=== PATIENT | male | born 1950 | race Caucasian/White ===

== ENCOUNTER 2017-08-02 05:46 | Emergency (ER) | payer MEDICARE, MEDICAID ==
--- NOTE | 2017-08-02 05:53 | Emergency Department Record ---
History of Present Illness - General Chief complaint: Swelling of legs Stated complaint: SWELLING IN LEGS Time Seen by Provider: 08/02/17 05:48 Source: EMS Mode of Arrival: EMS Limitations: Other - History of Present Illness Initial comments: 66 yo male presents to ED for evaluation of lower extremity edema for the past several days. Patient has history of CHF previously, and his [facility] home was concerned about the swelling to the feet bilaterally. Patient is non-verbal on examination, further history is not currently available. MD Complaint: Other (edema) -: Days(s) Location: Bilateral, Foot Consistency: Constant - Related Data Home Medications Medication Instructions Recorded Confirmed Last Taken Clonazepam [Klonopin] 1 - 2 tab PO BID PRN 08/02/17 08/02/17 Unknown Clozapine [Clozapine Odt] 12.5 mg PO BID 08/02/17 08/02/17 Unknown Hydrochlorothiazide [Hctz 12.5MG] 25 mg PO ASDIR PRN 08/02/17 08/02/17 Unknown Allergies Allergy/AdvReac Type Severity Reaction Status Date / Time No Known Drug Allergies Allergy Verified 08/23/16 13:53 Review of Systems ROS unobtainable: Other (patient non-verbal) Past Medical History - SOCIAL HISTORY Smoking Status: Never smoker Drug Use: None - RESPIRATORY Hx Respiratory Disorders: No - CARDIOVASCULAR Hx Cardio Disorders: No - NEURO Hx Neuro Disorders: Yes Hx Seizures: Yes Comment:: TBI - GI Hx GI Disorders: No - Hx Genitourinary Disorders: No - ENDOCRINE Hx Endocrine Disorders: No - MUSCULOSKELETAL Hx Musculoskeletal Disorders: No - PSYCH Hx Psych Problems: Yes Hx Behavior Problems: Yes (psychotic disorder NOS) Comment:: MR able to answer "yes and no" questions - HEMATOLOGY/ONCOLOGY Hx Hematology/Oncology Disorders: No Comment:: encephalopathy Family Medical History Family Hx Comment (NOT TO BE USED IN PLACE OF ITEMS BELOW): unknown Physical Exam - General General Appearance: Alert, Cooperative, No acute distress Limitations: Other (patient non-verbal) - Head Head exam: Atraumatic, Normocephalic, Normal inspection Head exam detail: negative: Abrasion, Contusion, Hawthorne's sign, General tenderness, Hematoma, Laceration - Eye Eye exam: Normal appearance. negative: Conjunctival injection, Periorbital swelling, Periorbital tenderness, Scleral icterus - ENT Nasal Exam: negative: Active bleeding, Discharge Mouth exam: negative: Drooling, Laceration, Muffled voice, Tongue elevation Teeth exam: Dental caries - Neck Neck exam: negative: Meningismus, Tenderness - Respiratory Respiratory exam: Normal lung sounds bilaterally. negative: Rales, Respiratory distress, Rhonchi, Stridor - Cardiovascular Cardiovascular Exam: Regular rate, Normal rhythm, Normal heart sounds - GI/Abdominal GI/Abdominal exam: Soft. negative: Rebound, Rigid, Tenderness - Rectal Rectal exam: Deferred - exam: Deferred - Extremities Extremities exam: Pedal edema. negative: Calf tenderness, Tenderness - Back Back exam: Denies: CVA tenderness (R), CVA tenderness (L) - Neurological Neurological exam: Alert. negative: Motor sensory deficit - Psychiatric Psychiatric exam: Normal affect, Normal mood - Skin Skin exam: Normal color. negative: Abrasion Type of lesion: negative: abrasion Course - Reevaluation(s) Reevaluation #1: 08/02/17 06:38 Labs reviewed and are grossly unremarkable for an acute process. CXR: No significant pulmonary edema is noted. Given the bilateral nature of the patient's symptoms and lack of patricia-pain/ swelling, symptoms appear c/w pedal edema. Doppler dose not appear to be indicated based on the patient's presentation. Patient appears stable for discharge at this time. Medical Decision Making - Lab Data Result diagrams: 08/02/17 06:03 08/02/17 06:03 Disposition Disposition: Discharge Clinical Impression: Pedal edema Disposition: Home, Self-Care Condition: (2) Stable Instructions: Edema (ED) Additional Instructions: Return to ED for any worsening of your symptoms. Follow-up with your family doctor in 3-5 days as directed. Forms: Patient Portal Access Time of Disposition: 06:42 Quality - Quality Measures Quality Measures: N/A - Blood Pressure Screening Does Patient Have Any of the Following: Active Dx of HTN Blood Pressure Classification: Hypertensive Reading Systolic Measurement: 144 Diastolic Measurement: 97 Screening for High Blood Pressure: Patient Exclusion, Hx of HTN [G9744]
[2017-08-02 06:07] LABS: HEMATOCRIT 43.6 % (42.0-52.0); HEMOGLOBIN 14.5 gm/dl (14.0-18.0); MEAN CELL VOLUME 87.4 fl (81-97); MEAN CORPUSCULAR HEMOGLOBIN 29.1 pg (27-33); MEAN CORPUSCULAR HGB CONC 33.3 g/dl (32-36); MEAN PLATELET VOLUME 10.1 fl (7.4-10.4); PLATELET COUNT 259 K/uL (130-400); RED BLOOD COUNT 4.99 M/uL (4.40-5.70); RED CELL DISTRIBUTION WIDTH 13.2 % (11.5-14.5); WHITE BLOOD COUNT W/O DIFF 6.3 K/uL (4.2-12.2)
[2017-08-02 06:20] LABS: BLOOD UREA NITROGEN 15 mg/dL (8-23); CREATININE 0.8 mg/dL (0.7-1.2); EST GLOMERULAR FILTRATION RATE > 60 mL/min
[2017-08-02 06:21] LABS: TOTAL PROTEIN 6.7 g/dL (6.6-8.7)
[2017-08-02 06:23] LABS: GLUCOSE,RANDOM 88 mg/dL (74-109)
[2017-08-02 06:25] LABS: ALT/SGPT 18 U/L (<41); AST/SGOT 20 U/L (10.0-50.0)
[2017-08-02 06:26] LABS: ALB/GLOB RATIO 1.4 (1.1-1.8); ALBUMIN 3.9 g/dL (4.0-5.0); ALKALINE PHOSPHATASE 67 U/L (40-129)
[2017-08-02 06:32] LABS: NTpro B-NATRIURETIC PEPTIDE 55.47 pg/mL (<125)
--- NOTE | 2017-08-02 10:24 | RADIOLOGY REPORT ---
EXAM: CHEST, TWO VIEWS HISTORY: CHF, LOWER EXTREMITY EDEMA. TECHNIQUE: Two views of the chest were obtained. Comparison: Chest x-ray 05/11/15. FINDINGS: Fine linear scarring left mid lung. The lungs are clear with no overt pulmonary edema. The cardiac silhouette is mildly enlarged. The diaphragm is unremarkable. Osteopenia. Four mild wedge deformities in the mid to lower thoracic spine consistent with osteoporotic compression fractures similar to the prior study. Healed right rib fractures. IMPRESSION: 1. NO ACUTE INTRATHORACIC PROCESS. 2. LINEAR SCARRING LEFT MID LUNG. JOB NUMBER: [id number] [facility]
== END 2017-08-02 07:05 | disposition home or self-care (01) ==
LOC: ER 05:46
DX: R60.0 Localized edema (principal); I50.9 Heart failure, unspecified
CPT/HCPCS: 71020; 80053; 83880; 85027; 99283; 99284

== ENCOUNTER 2017-09-08 01:02 | Emergency (ER) | payer MEDICARE, MEDICAID ==
--- NOTE | 2017-09-08 01:13 | Emergency Department Record ---
History of Present Illness - General Chief complaint: Swelling of legs Stated complaint: SWELLING Time Seen by Provider: 09/08/17 01:07 Source: Patient, Family (tooling mechanic from the [facility]) Mode of Arrival: EMS Limitations: Other (Chronic mental impairment - at baseline) - History of Present Illness Initial comments: 66 yo male presents with a concern by [facility] staff about edema of the legs, paleness of the legs, and scrotal edema. The patient is at his baseline mental status. He denies pain. He states he is hungry. No report of shortness of breath, cough, fever, chest pain, nausea, vomiting or edema. He has been ambulating at the home without assistance as per his baseline. The behavioral health care coordinator present states he has a history of CHF. PCP is visiting physicians. MD Complaint: Extremity swelling -: Minutes(s) Location: Bilateral Radiation: Distal Quality: Other (No compaints) Consistency: Now resolved Improves with: Other Worsens with: Other Associated Symptoms: Denies other symptoms - Related Data Home Medications Medication Instructions Recorded Confirmed Last Taken Acetaminophen 325 mg PO Q6H PRN 09/08/17 09/08/17 Unknown Bisacodyl [Bisac-Evac] 10 mg RC ASDIR PRN 09/08/17 09/08/17 Unknown Calcium Polycarbophil [Fiber Lax] 625 mg PO DAILY 09/08/17 09/08/17 09/07/17 Clozapine [Clozapine Odt] 25 mg PO BID 09/08/17 09/08/17 09/07/17 Furosemide [Lasix] 10 mg PO ASDIR 09/08/17 09/08/17 09/07/17 Glycerin [Laxative Suppository] 1 each RC ASDIR PRN 09/08/17 09/08/17 Unknown Guaifen/Dextromethorphan/PE 10 ml PO ASDIR PRN 09/08/17 09/08/17 Unknown [Robafen Cf Liquid] Ibuprofen [Motrin 600Mg] 600 mg PO Q6H PRN 09/08/17 09/08/17 Unknown Loperamide HCl [Anti-Diarrhea] 2 mg PO ASDIR PRN 09/08/17 09/08/17 Unknown Magnesium Hydroxide [Milk of 400 mg PO ASDIR PRN 09/08/17 09/08/17 Unknown Magnesia] Multivit,Calc,Mins/Iron/Folic 1 each PO DAILY 09/08/17 09/08/17 09/07/17 [Thera M Plus Tablet] Olanzapine [Zyprexa] 5 mg PO QAM 09/08/17 09/08/17 09/07/17 Potassium Chloride 10 meq PO ASDIR 09/08/17 09/08/17 09/07/17 Allergies Allergy/AdvReac Type Severity Reaction Status Date / Time No Known Drug Allergies Allergy Verified 08/23/16 13:53 Review of Systems ROS unobtainable: Other (Per technical programs manager) Constitutional: Denies: Chills, Fever, Weakness Eyes: Denies: Eye discharge ENT: Denies: Congestion Respiratory: Denies: Cough, Dyspnea, Hemoptysis Cardiovascular: Denies: Chest pain, Syncope Endocrine: Denies: Fatigue Gastrointestinal: Denies: Abdominal pain, Diarrhea, Nausea, Vomiting Genitourinary: Reports: Incontinence (chronic). Denies: Dysuria, Frequency Skin: Denies: Bruising, Change in color, Rash Neurological: Denies: Confusion Psychiatric: Denies: Anxiety Hematological/Lymphatic: Denies: Blood Clots, Easy bleeding, Easy bruising, Swollen glands Past Medical History - SOCIAL HISTORY Smoking Status: Never smoker Drug Use: None - RESPIRATORY Hx Respiratory Disorders: No - CARDIOVASCULAR Hx Cardio Disorders: No - NEURO Hx Neuro Disorders: Yes Hx Seizures: Yes Comment:: TBI - GI Hx GI Disorders: No - Hx Genitourinary Disorders: No - ENDOCRINE Hx Endocrine Disorders: No - MUSCULOSKELETAL Hx Musculoskeletal Disorders: No - PSYCH Hx Psych Problems: Yes Hx Behavior Problems: Yes (psychotic disorder NOS) Comment:: MR able to answer "yes and no" questions - HEMATOLOGY/ONCOLOGY Hx Hematology/Oncology Disorders: No Comment:: encephalopathy Family Medical History Family Hx Comment (NOT TO BE USED IN PLACE OF ITEMS BELOW): unknown Physical Exam - General General Appearance: Alert, Cooperative, No acute distress, Other (Appears relaxed and calm, non labored) Limitations: Other (At his baseline) - Head Head exam: Normal inspection - Eye Eye exam: Normal appearance. negative: Conjunctival injection, Periorbital swelling - ENT ENT exam: Normal exam, Mucous membranes moist Ear exam: Normal external inspection Nasal Exam: Normal inspection Throat exam: Normal inspection - Neck Neck exam: Normal inspection. negative: Lymphadenopathy - Respiratory Respiratory exam: Normal lung sounds bilaterally, Other (Clear lungs, non labored). negative: Accessory muscle use, Decreased breath sounds, Prolonged expiratory, Rales, Respiratory distress, Rhonchi, Stridor, Wheezes - Cardiovascular Cardiovascular Exam: Regular rate, Normal rhythm, Normal heart sounds Peripheral Pulses: 2+: Radial (R), Radial (L), Dorsalis Pedis (R) (strong pulses , brisk cap refill), Dorsalis Pedis (L) (strong pulses, brisk cap refill) - GI/Abdominal GI/Abdominal exam: Soft. negative: Distended, Guarding, Rebound, Rigid, Tenderness - Rectal Rectal exam: Deferred - exam: Circumcision, Normal inspection, Other (The scrotum is soft and relaxed , no edema of the scrotum, testicles are easily palpated and non tender, mobile , no visible or palpable masses or edema). negative: Scrotal swelling, Testicular tenderness - Extremities Extremities exam: Normal inspection, Full ROM, Normal capillary refill, Pedal edema (essentially normal inspection of the legs, trace pretibial edema, warm feet and toes, pink toes, brisk cap refill of the feet and toes with brisk DP and PT pulses, NO signs of vascular compromise). negative: Tenderness - Back Back exam: Denies: CVA tenderness (R), CVA tenderness (L) - Neurological Neurological exam: Alert - Psychiatric Psychiatric exam: negative: Agitated, Anxious - Skin Skin exam: Dry, Intact, Normal color, Warm. negative: Cyanosis, Diaphoretic, Erythema, Mottled, Pallor Course - Reevaluation(s) Reevaluation #1: The vitals were reviewed The patient is at his baseline MS He appears very comfortable and in no discomfort His scrotal examination is normal without edema or mass His legs appears normal on inspection with only minimal trace edema His extremities are warm, clean, excellent pulses and cap refill. No asymmetry. No signs clinically of DVT or arterial insufficiency. No overt findings to support decompensated CHF. No signs of infection. His examination is unremarkable. 09/08/17 01:15 09/08/17 01:28 No acute changes on the CBC. 09/08/17 02:08 No acute changes on the CMP 09/08/17 02:22 The BNP is normal Medical Decision Making - Lab Data Result diagrams: 09/08/17 01:15 01/11/18 01:15 Disposition Disposition: Discharge Clinical Impression: Pedal edema Disposition: Home, Self-Care Condition: (1) Good Instructions: Leg Edema (ED) Additional Instructions: Call visiting physicians for a recheck this week Return if Roge has any swelling, pain, changes from his baseline health or new concerns. Keep an log of daily weights and show them to your doctor Forms: Patient Portal Access Time of Disposition: 02:21 Quality - Quality Measures Quality Measures: N/A - Blood Pressure Screening Does Patient Have Any of the Following: No Blood Pressure Classification: Pre-Hypertensive BP Reading Systolic Measurement: 148 Diastolic Measurement: 86 Screening for High Blood Pressure: < Pre-Hypertensive BP, F/U Documented > [ G8950] Pre-Hypertensive Follow-up Interventions: Referral to alternative/primary care provider.
[2017-09-08 01:24] LABS: BASO % 0.4 % (0-6); EOS % 7.1 % (0-6); GRAN % 57.8 % (47-80); HEMATOCRIT 42.5 % (42.0-52.0); HEMOGLOBIN 13.8 gm/dl (14.0-18.0); LYMPH % 22.1 % (16-45); MEAN CELL VOLUME 86.4 fl (81-97); MEAN CORPUSCULAR HGB CONC 32.5 g/dl (32-36); MEAN PLATELET VOLUME 10.1 fl (7.4-10.4); MONO % 12.6 % (0-9); PLATELET COUNT 221 K/uL (130-400); RED BLOOD COUNT 4.92 M/uL (4.40-5.70); WHITE BLOOD COUNT W/O DIFF 5.3 K/uL (4.2-12.2)
[2017-09-08 02:07] LABS: BLOOD UREA NITROGEN 16 mg/dL (8-23); CREATININE 0.8 mg/dL (0.7-1.2); EST GLOMERULAR FILTRATION RATE > 60 mL/min; TOTAL PROTEIN 6.6 g/dL (6.6-8.7)
[2017-09-08 02:09] LABS: GLUCOSE,RANDOM 93 mg/dL (74-109)
[2017-09-08 02:12] LABS: ALB/GLOB RATIO 1.6 (1.1-1.8); ALBUMIN 4.1 g/dL (4.0-5.0); ALKALINE PHOSPHATASE 73 U/L (40-129); ALT/SGPT 21 U/L (<41); AST/SGOT 20 U/L (10.0-50.0)
[2017-09-08 02:20] LABS: NTpro B-NATRIURETIC PEPTIDE 35.61 pg/mL (<125)
== END 2017-09-08 02:31 | disposition home or self-care (01) ==
LOC: ER 01:02
DX: R06.00 Dyspnea, unspecified (principal)
CPT/HCPCS: 80053; 83880; 85025; 99283

== ENCOUNTER 2017-12-15 23:21 | Emergency (ER) | payer MEDICARE, MEDICAID ==
[2017-12-16 00:03] LABS: BASO % 0.8 % (0-6); EOS % 8.6 % (0-6); GRAN % 50.7 % (47-80); HEMATOCRIT 41.5 % (42.0-52.0); HEMOGLOBIN 13.5 gm/dl (14.0-18.0); LYMPH % 25.6 % (16-45); MEAN CELL VOLUME 88.1 fl (81-97); MEAN CORPUSCULAR HGB CONC 32.5 g/dl (32-36); MEAN PLATELET VOLUME 10.4 fl (7.4-10.4); MONO % 14.3 % (0-9); PLATELET COUNT 237 K/uL (130-400); RED BLOOD COUNT 4.71 M/uL (4.40-5.70); WHITE BLOOD COUNT W/O DIFF 4.8 K/uL (4.2-12.2)
[2017-12-16 00:07] LABS: MEAN CORPUSCULAR HEMOGLOBIN 28.6 pg (27-33)
[2017-12-16 00:15] LABS: BLOOD UREA NITROGEN 15 mg/dL (8-23); CREATININE 0.9 mg/dL (0.7-1.2); EST GLOMERULAR FILTRATION RATE > 60 mL/min
[2017-12-16 00:16] LABS: TOTAL PROTEIN 6.4 g/dL (6.6-8.7)
[2017-12-16 00:18] LABS: GLUCOSE,RANDOM 101 mg/dL (74-109)
[2017-12-16 00:21] LABS: ALB/GLOB RATIO 1.5 (1.1-1.8); ALBUMIN 3.8 g/dL (4.0-5.0); ALKALINE PHOSPHATASE 70 U/L (40-129); ALT/SGPT 17 U/L (<41); AST/SGOT 12 U/L (10.0-50.0)
--- NOTE | 2017-12-16 00:42 | Emergency Department Record ---
History of Present Illness - General Chief Complaint: General Stated Complaint: EVALUATION Time Seen by Provider: 12/15/17 23:42 Source: Family, EMS, Research And Development Director Mode of Arrival: EMS Limitations: No limitations - History of Present Illness Initial Comments: hx given by caregiver. pt was not his normal self tonight. he had trouble standing and he seemed more sleepy and had trouble walking. pt had one of his meds increased yesterday. staff denies injury MD Complaint: Altered mental status -: Hour(s) Severity: Mild Consistency: Constant Context: Change in medication Associated Symptoms: Denies other symptoms - Related Data Home Medications Medication Instructions Recorded Confirmed Last Taken Magnesium Hydroxide [Milk of 400 mg PO ASDIR PRN 12/15/17 12/15/17 Unknown Magnesia] Allergies Allergy/AdvReac Type Severity Reaction Status Date / Time No Known Drug Allergies Allergy Verified 11/30/17 10:23 Travel Screening - Travel/Exposure Within Last 30 Days Have you traveled within the last 30 days?: No - Travel Symptoms Symptom Screening: None Review of Systems Reviewed: No additional complaints except as noted below Constitutional: Reports: As per HPI. Denies: Chills, Fever, Malaise, Night sweats, Weakness, Weight change Eyes: Reports: As per HPI. Denies: Eye discharge, Eye pain, Photophobia, Vision change ENT: Reports: As per HPI. Denies: Congestion, Dental pain, Ear pain, Epistaxis , Hearing loss, Throat pain Respiratory: Reports: As per HPI. Denies: Cough, Dyspnea, Hemoptysis, Stridor, Wheezes Cardiovascular: Reports: As per HPI. Denies: Arrhythmia, Chest pain, Dyspnea on exertion, Edema, Murmurs, Orthopnea, Palpitations, Paroxysmal nocturnal dyspnea, Rheumatic Fever, Syncope Endocrine: Reports: As per HPI. Denies: Fatigue, Heat or cold intolerance, Polydipsia, Polyuria Gastrointestinal: Reports: As per HPI. Denies: Abdominal pain, Constipation, Diarrhea, Hematemesis, Hematochezia, Melena, Nausea, Vomiting Genitourinary: Reports: As per HPI. Denies: Dysuria, Frequency, Hematuria, Incontinence, Retention, Testicular pain, Testicular mass, Urgency Musculoskeletal: Reports: As per HPI. Denies: Arthralgia, Back pain, Gout, Joint swelling, Myalgia, Neck pain Skin: Reports: As per HPI. Denies: Bruising, Change in color, Change in hair/ nails, Lesions, Pruritus, Rash Neurological: Reports: As per HPI. Denies: Abnormal gait, Confusion, Headache, Numbness, Paresthesias, Seizure, Tingling, Tremors, Vertigo, Weakness Psychiatric: Reports: As per HPI. Denies: Anxiety, Auditory hallucinations, Depression, Homicidal thoughts, Suicidal thoughts, Visual hallucinations Hematological/Lymphatic: Reports: As per HPI. Denies: Anemia, Blood Clots, Easy bleeding, Easy bruising, Swollen glands Past Medical History - SOCIAL HISTORY Smoking Status: Never smoker - RESPIRATORY Hx Respiratory Disorders: No Hx Pneumonia: Yes - CARDIOVASCULAR Hx Cardio Disorders: Yes Hx CHF: Yes - NEURO Hx Neuro Disorders: Yes Hx Dementia: Yes Hx Seizures: Yes Comment:: TBI; severe mental retardation - GI Hx GI Disorders: Yes Comment:: TAKES ZANTAC; Dysphagia - Hx Genitourinary Disorders: No Comment:: RARE INCONTINENCE - ENDOCRINE Hx Endocrine Disorders: No - MUSCULOSKELETAL Hx Musculoskeletal Disorders: No - PSYCH Hx Psych Problems: Yes Hx Behavior Problems: Yes (psychotic disorder NOS) Comment:: schizophrenia ; - HEMATOLOGY/ONCOLOGY Hx Hematology/Oncology Disorders: No Comment:: encephalopathy Family Medical History Any Significant Family History?: No Family Hx Comment (NOT TO BE USED IN PLACE OF ITEMS BELOW): unknown Physical Exam - General General Appearance: Alert, Cooperative, Mild distress - Head Head exam: Normal inspection - Eye Eye exam: Normal appearance, PERRL, EOMI Pupils: Normal accommodation - ENT ENT exam: Normal exam, Mucous membranes moist, Normal external ear exam, Normal orophraynx Ear exam: Normal external inspection. negative: External canal tenderness Nasal Exam: Normal inspection. negative: Discharge, Sinus tenderness Mouth exam: Normal external inspection, Tongue normal Teeth exam: Normal inspection. negative: Dental caries Throat exam: Normal inspection. negative: Tonsillar erythema, Tonsillar exudate - Neck Neck exam: Normal inspection, Full ROM. negative: Tenderness - Respiratory Respiratory exam: Normal lung sounds bilaterally. negative: Respiratory distress - Cardiovascular Cardiovascular Exam: Regular rate, Normal rhythm, Normal heart sounds - GI/Abdominal GI/Abdominal exam: Soft, Normal bowel sounds. negative: Tenderness - Rectal Rectal exam: Deferred - exam: Deferred - Extremities Extremities exam: Normal inspection, Full ROM, Normal capillary refill. negative: Tenderness - Back Back exam: Reports: Normal inspection, Full ROM. Denies: Muscle spasm, Rash noted, Tenderness - Neurological Neurological exam: Altered, CN II-XII intact, Normal gait - Psychiatric Psychiatric exam: Normal affect, Normal mood - Skin Skin exam: Dry, Intact, Normal color, Warm Course Vital Signs 12/15/17 12/15/17 23:25 23:26 Temperature 97.6 F 97.6 F Pulse Rate [ 83 Pulse Ox Probe] Respiratory 16 16 Rate Blood Pressure 139/83 [Left Arm] Pulse Ox 96 Medical Decision Making - Lab Data Result diagrams: 12/15/17 23:55 12/15/17 23:55 Lab Results 12/15/17 12/15/17 Range/Units 23:55 23:55 WBC 4.8 (4.2-12.2) K/uL RBC 4.71 (4.40-5.70) M/uL Hgb 13.5 L (14.0-18.0) gm/dl Hct 41.5 L (42.0-52.0) % MCV 88.1 (81-97) fl MCH 28.6 (27-33) pg MCHC 32.5 (32-36) g/dl RDW 13.0 (11.5-14.5) % Plt Count 237 (130-400) K/uL MPV 10.4 (7.4-10.4) fl Gran % 50.7 (47-80) % Lymphocytes % 25.6 (16-45) % Monocytes % 14.3 H (0-9) % Eosinophils % 8.6 H (0-6) % Basophils % 0.8 (0-6) % Sodium 139 (136-145) mmol/L Potassium 4.0 (3.4-4.5) mmol/L Chloride 103 (98-107) mmol/L Carbon Dioxide 26.0 (22-29) mmol/L Anion Gap 10.0 (7-16) BUN 15 (8-23) mg/dL Creatinine 0.9 (0.7-1.2) mg/dL Estimated GFR > 60 mL/min Random Glucose 101 (74-109) mg/dL Calcium 9.1 (8.8-10.2) mg/dL Total Bilirubin 0.50 (0.2-1.0) mg/dL AST 12 (10.0-50.0) U/L ALT 17 (<41) U/L Alkaline Phosphatase 70 (40-129) U/L Total Protein 6.4 L (6.6-8.7) g/dL Albumin 3.8 L (4.0-5.0) g/dL Globulin 2.6 (1.4-4.8) gm/dL Albumin/Globulin Ratio 1.5 (1.1-1.8) Disposition Disposition: Discharge Clinical Impression: Medication side effect Disposition: Home, Self-Care Condition: (1) Good Instructions: Adverse Drug Reaction (ED) Additional Instructions: follow up with family doctor. return sooner if worse. monitor closely Forms: Patient Portal Access Quality - Quality Measures Quality Measures: N/A - Blood Pressure Screening Does Patient Have Any of the Following: No Blood Pressure Classification: Hypertensive Reading Systolic Measurement: 144 Diastolic Measurement: 92 Screening for High Blood Pressure: < First Hypertensive BP, F/U Documented > [ G8950] First Hypertensive Follow-up Interventions: Follow-up with rescreen GT 1 day and LT 4 weeks.
[2017-12-16 02:02] LABS: URINE APPEARANCE CLEAR; URINE BILIRUBIN NEGATIVE (NEGATIVE); URINE BLOOD NEGATIVE (NEGATIVE); URINE COLOR YELLOW; URINE GLUCOSE (UA) NEGATIVE (NEGATIVE); URINE KETONE NEGATIVE (NEGATIVE); URINE LEUKOCYTE ESTERASE NEGATIVE (NEGATIVE); URINE NITRITE NEGATIVE (NEGATIVE); URINE PROTEIN NEGATIVE (NEGATIVE); URINE UROBILINOGEN 0.2 E.U./dL (0.20 - 1.00)
== END 2017-12-16 02:24 | disposition home or self-care (01) ==
LOC: ER 23:21
DX: T88.7XXA Unspecified adverse effect of drug or medicament, initial encounter (principal); R41.82 Altered mental status, unspecified; F72 Severe intellectual disabilities; F20.9 Schizophrenia, unspecified
CPT/HCPCS: 71046; 80053; 81003; 85025; 99283